=== PATIENT | female | born 1990 | race Hispanic/Latino ===

== ENCOUNTER 2018-11-26 21:22 | Emergency (ER) | payer BC ==
[2018-11-26 22:33] VITALS: RESP 18; O2SAT 99
--- NOTE | 2018-11-26 23:41 | ED PDOC ---
HPI: Head Injury Time Seen by Provider: 11/26/18 22:48 Chief Complaint (Nursing): Headache Chief Complaint (Provider): Head Inury History Per: Patient History/Exam Limitations: no limitations Injury Occurred (Timing): Days Ago: (x2) Onset/Duration Of Symptoms: Days (x1) Additional Complaint(s): 28 years old female presents to ER for evaluation of head injury onset yesterday 2 days ago associated with pain that started yesterday evening. Patient reports 2 days ago, on Friday night, she was bent over, got up quickly and did not realize that her was behind her and hit her back of head to his head. She reports sharp pain to left posterior head at the time and felt a little lightheaded, otherwise she was fine. Patient reports yesterday evening she started to feel pain again of ache and throbbing headache localized to back of head. She states today she had light sensitivity and difficulty focusing. Patient reports taking some Tylenol prior to arrival. She denies nausea, vomiting and focal weakness. PMD: Tawnya León Past Medical History Reviewed: Historical Data, Nursing Documentation, Vital Signs Vital Signs: Last Vital Signs Temp 98.1 F 11/26/18 22:30 Pulse 95 H 11/26/18 22:30 Resp 18 11/26/18 22:30 BP 125/79 11/26/18 22:30 Pulse Ox 99 11/26/18 22:30 - Medical History PMH: No Chronic Diseases - Surgical History Surgical History: No Surg Hx - Family History Family History: States: Hypertension, Other Other Family History: Cancer, high cholesterol and Alzheimer's - Social History Current smoker - smoking cessation education provided: No Alcohol: None Drugs: Denies - Allergies Allergies/Adverse Reactions: Allergies Allergy/AdvReac Type Severity Reaction Status Date / Time No Known Allergies Allergy Verified 11/26/18 22:30 Review of Systems ROS Statement: Except As Marked, All Systems Reviewed And Found Negative Eyes: Positive for: Vision Change (light sensitivity) Gastrointestinal: Negative for: Nausea, Vomiting Neurological: Positive for: Other (Difficulty focusing). Negative for: Weakness (focal) Physical Exam - Reviewed Nursing Documentation Reviewed: Yes Vital Signs Reviewed: Yes - Physical Exam Appears: Positive for: Well, In Acute Distress (mild painful) Head Exam: Positive for: NORMOCEPHALIC. Negative for: ATRAUMATIC (tenderness to palpation to left occiput with superficial abrasion of 0.5 cm) Skin: Positive for: Normal Color, Warm, Dry Eye Exam: Positive for: EOMI, PERRL. Negative for: Nystagmus Neck: Positive for: Painless ROM, Supple Respiratory: Negative for: Respiratory Distress Back: Positive for: Normal Inspection. Negative for: Decreased ROM Extremity: Positive for: Normal ROM. Negative for: Deformity Neurological/Psych: Positive for: Awake, Alert, Oriented (x3), Cerebellar Tests (normal), otolaryngology nurse II-XII (intact), Other (normal speech and normal movement affect). Negative for: Motor/Sensory Deficits, Facial Droop - ECG O2 Sat by Pulse Oximetry: 99 (RA) Pulse Ox Interpretation: Normal Medical Decision Making Medical Decision Making: Time: [id number] Initial impression: head injury with post concussive symptoms. Differential includes but not limited to traumatic head injury vs. concussion Initial plan: --CT Head w/o Contrast --Urine Name: SONIA MATIAS Exam Date: Nov 26, 2018 11:35:12 PM EDT Modality Type: CT\SR Description: CT - BRAIN WITH CORONAL AND SAGITTAL MPRS Gender: F Laterality: Not applicable : 88 Referring Physician: Tiana Day EXAM: CT Head Without IV contrast. CLINICAL HISTORY: Head trauma headache TECHNIQUE: Axial computed tomography images of the head/brain without intravenous contrast. COMPARISON: None provided. FINDINGS: BRAIN: No acute intraparenchymal hemorrhage. No mass lesion. No CT evidence for acute territorial infarct. No midline shift or extra-axial collections. VENTRICLES: No hydrocephalus. ORBITS: The orbits are unremarkable. SINUSES AND MASTOIDS: The paranasal sinuses and mastoid air cells are clear. BONES: No fracture. SOFT TISSUES: Unremarkable. IMPRESSION: No acute intracranial abnormality. Electronically signed on Nov 27, 2018 12:31:20 AM EDT by: Joni Alcala M.D., Certified by TOMAS, MSK, Neuroradiology DW pt findings. Pt stable for discharge. Advised avoid activity with known risk of head injury for a week (i.e. contact sports). Return parameters reviewed and pt to f/u [facility] or PMD 2-3 days. Scribe Attestation: Documented by Judy Chavez, acting as a scribe for Tiana Day MD. Provider Scribe Attestation: All medical record entries made by the Scribe were at my direction and personally dictated by me. I have reviewed the chart and agree that the record accurately reflects my personal performance of the history, physical exam, medical decision making, and the department course for this patient. I have also personally directed, reviewed, and agree with the discharge instructions and disposition. Disposition - Clinical Impression Clinical Impression: Concussion - Disposition Referrals: Gwen Carter [Outside] (FOLLOWUP WITH YOUR PMD OF [facility] IN 2-3 DAYS FOR REEVALUATION) Disposition: Routine/Home Disposition Time: 00:30 Condition: STABLE Additional Instructions: NO CONTACT SPORTS OR STRENUOUS ACTIVITY FOR AT LEAST A WEEK. Instructions: Concussion, Adult (DC) Forms: Gwen Sandra (Hebrew), [facility] ED School/Work Excuse
[2018-11-27 00:53] VITALS: BP 121/76; PULSE 86; TEMP 98
--- NOTE | 2018-11-27 10:07 | CT ---
Date of service: 11/26/2018 PROCEDURE: CT HEAD WITHOUT CONTRAST. HISTORY: Head trauma with headache. COMPARISON: None available. TECHNIQUE: Axial computed tomography images were obtained through the head/brain without intravenous contrast. Radiation dose: Total exam DLP = 799.51 mGy-cm. This CT exam was performed using one or more of the following dose reduction techniques: Automated exposure control, adjustment of the mA and/or kV according to patient size, and/or use of iterative reconstruction technique. FINDINGS: HEMORRHAGE: No acute parenchymal, subarachnoid or extra-axial hemorrhage. BRAIN: No mass effect or edema. No atrophy or chronic microvascular ischemic changes. VENTRICLES: Unremarkable. No hydrocephalus. CALVARIUM: Unremarkable. PARANASAL SINUSES: Unremarkable as visualized. No significant inflammatory changes. MASTOID AIR CELLS: Unremarkable as visualized. No inflammatory changes. OTHER FINDINGS: None. IMPRESSION: No acute intracranial hemorrhage.
== END 2018-11-27 00:40 | disposition home or self-care (01) ==
LOC: H.ER 21:22
DX: F07.81 Postconcussional syndrome (principal)